=== PATIENT | female | born 1960 | race Caucasian/White ===

== ENCOUNTER 2023-10-31 09:19 | Emergency (ER) | payer MEDICAID, SELFPAY ==
[2023-10-31 09:36] VITALS: BP 188/137; PULSE 79; RESP 20; TEMP 36.4; O2SAT 100
--- NOTE | 2023-10-31 10:03 | W.ED.GENAD ---
HPI General Stated Complaint: GenMedical Mode of arrival: ambulatory. MELISA: 4 Date/Time Provider Initiated Documentation: 10/31/23 10:03. Limitations to Documentation: no limitations. Information obtained by: patient. HPI Narrative: 63-year-old female presents with chief complaint of worms in stool. Patient is concerned that she has itchy rectum over the past couple weeks, worse over the past few days. Symptoms worse at night. She notes she did a tape test that was positive and noted worms in her stool. No abdominal pain. No fever. Patient also notes rash bilateral hands right greater than left. Described as dry skin and itchy. Has been present for a couple weeks. Concern cleaning chemicals at work are irritating hands. Related Data Home Medications Medication Instructions Recorded Confirmed albendazole 200 mg tablet 400 mg (2 x 200 mg) PO BID 14 days 10/31/23 #56 tabs naproxen sodium 220 mg capsule 220 mg PO Q6H PRN 10/31/23 10/31/23 (Aleve) Previous Rx's Medication Instructions Recorded albendazole 200 mg tablet 400 mg (2 x 200 mg) PO BID 14 days 10/31/23 #56 tabs Allergies Allergy/AdvReac Type Severity Reaction Status Date / Time fish derived Allergy Intermediate Other (See Unverified 10/31/23 09:40 Comment) shellfish derived Allergy Intermediate Other (See Unverified 10/31/23 09:40 Comment) Review of Systems All systems reviewed & are unremarkable except as noted in HPI and below Constitutional Constitutional: Denies fever(s) Gastrointestinal Gastrointestinal: Reports as per HPI PFSH All Active Problems Worms in stool (Acute) Elevated blood pressure reading (Acute) Rash of hands (Acute) Social History Smoking/Tobacco Use Status: Never Smoking risk assessment performed?: Yes Alcohol Intake: current Alcohol Intake frequency: holidays/special occasions only Alcohol type: wine Substance use type: does not use Housing: apartment Do you feel safe at home: Yes Exam Const General: cooperative and no acute distress HENMT Mouth: moist mucous membranes Eyes Conjunctivae: normal conjunctivae Skin Rashes: rashes noted (Dry skin with cracking ulceration dorsal interdigit right hand) Course Vital Signs Vital signs: Vital Signs Temperature 36.4 C L 10/31/23 09:36 Pulse 79 10/31/23 09:36 Respiratory Rate 20 10/31/23 09:36 Blood Pressure 188/137 H 10/31/23 09:36 Pulse Oximetry 100 10/31/23 09:36 Temperature 36.4 C L 10/31/23 09:36 Temperature Source Skin 10/31/23 09:36 Pulse 79 10/31/23 09:36 Respiratory Rate 20 10/31/23 09:36 Respiratory Effort Normal, Non-Labored 10/31/23 09:49 Blood Pressure 188/137 H 10/31/23 09:36 Blood Pressure Position Sitting 10/31/23 09:36 Pulse Oximetry 100 10/31/23 09:36 Oxygen Delivery Method Room Air 10/31/23 09:36 Oxygen Flow Rate 0 10/31/23 09:36 Medical Decision Making 63-year-old female with history concerning for pinworm. Patient cannot provide stool sample at this time. I will treat empirically with albendazole. Will send stool ova and parasite. Patient also with rash consistent with contact dermatitis versus dyshidrotic eczema dorsal right hand. Recommended [id number]-rjpfwel cortisone cream and moisturizer which was discussed with the patient. Patient's blood pressure is elevated. She is quite anxious about being here today. Patient should have this rechecked and follow-up with PCP. This was discussed with the patient. Usual customary discharge instructions were reviewed. Quality:SDOH Health Related Social Needs: No Data to Display Discharge Plan Disposition Patient Disposition: Home Condition: Stable Discharge Details Clinical Impression: Rash of hands, Elevated blood pressure reading, Worms in stool Primary Care Provider: Marina Phelan ED Provider: Audie Najera Home Meds and New Rx's Prescriptions: New albendazole 200 mg tablet 400 mg PO BID 14 Days Qty: 56 0RF Rx Instructions: must administer with food, preferably a high-fat meal Continued naproxen sodium [Aleve] 220 mg capsule 220 mg PO Q6H PRN Discharge Instructions Instructions: Acute Rash (ED) Additional Instructions: Please see attached information patient education pinworms. An outpatient order has been made for stool culture testing. Based on your history, you have been started empirically on a medicine to treat intestinal worms. Please take medication as prescribed. Please contact your primary care physician to arrange follow-up. Please be sure to discuss your elevated blood pressure today. You should have this rechecked. Return to the ER immediately for any worsening or new concerning symptoms. Referrals: Marina Phelan NP [Primary Care Provider] -
--- NOTE | 2023-10-31 10:15 | NUR.NOTE ---
Referral to Care Management to help establish a Female Primary Care Physician within a couple of weeks.
--- NOTE | 2023-11-01 09:53 | NUR.NOTE ---
Accessed Pt chart to obtain demographics and for calling in a prescription per Dr Daniels
== END 2023-10-31 10:19 | disposition home or self-care (01) ==
PROVIDERS: Emergency Provider Student in an Organized Health Care Education/Training Program; PCP Nurse Practitioner Family
DX: R21 Rash and other nonspecific skin eruption (principal); B81.8 Other specified intestinal helminthiases; R03.0 Elevated blood-pressure reading, without diagnosis of hypertension
CPT/HCPCS: 99283

== ENCOUNTER 2023-11-02 15:55 | Outpatient (REF) | payer MEDICAID, SELFPAY | END 2023-11-02 15:56 | disposition home or self-care (01) | LOC: LBN 15:55 | PROVIDERS: PCP Nurse Practitioner Family; Visit Provider Student in an Organized Health Care Education/Training Program | DX: R19.5 Other fecal abnormalities (principal); B82.0 Intestinal helminthiasis, unspecified | CPT/HCPCS: 87329; 87177 ==

== ENCOUNTER 2023-12-06 12:10 | Outpatient (REF) | payer MEDICAID, SELFPAY | END 2023-12-06 12:11 | disposition home or self-care (01) | LOC: NCHCN 12:10 | PROVIDERS: PCP Nurse Practitioner Family; Visit Provider Family Medicine | DX: R19.5 Other fecal abnormalities (principal); B81.8 Other specified intestinal helminthiases | CPT/HCPCS: 87177 ==